=== PATIENT | male | born 1955 | race Hispanic/Latino ===

== ENCOUNTER 2019-01-24 20:09 | Inpatient (IN) | payer MEDICARE, MEDICAID ==
[2019-01-24 20:10] VITALS: BMI 32.0
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
[2019-01-24 21:11] LABS: BASO % 0.4 % (0.0-2.0); EOS # 0.1 K/uL (0.0-0.7); EOS % 1.7 % (0.0-4.0); HEMOGLOBIN 12.7 g/dL (12.0-18.0); LYMPH % 31.3 % (20.0-40.0); MEAN CELL VOLUME 95.1 fl (80.0-94.0); MEAN CORPUSCULAR HEMOGLOBIN 32.2 pg (27.0-31.0); MEAN CORPUSCULAR HGB CONC 33.9 g/dL (33.0-37.0); MEAN PLATELET VOLUME 8.8 fl (7.2-11.7); MONO # 0.9 K/uL (0.0-0.8); MONO % 14.1 % (0.0-10.0); NEUT # 3.4 K/uL (1.8-7.0); NEUT % 52.5 % (50.0-75.0); NRBC % 0.1 % (0.0-0.0); RBC 3.95 Mil/uL (4.40-5.90); RED CELL DISTRIBUTION WIDTH 13.7 % (11.5-14.5); WHITE BLOOD COUNT 6.4 K/uL (4.8-10.8)
[2019-01-24 21:16] LABS: URINE BACTERIA RARE (<OCC); URINE BILIRUBIN NEGATIVE (NEGATIVE); URINE BLOOD NEGATIVE (NEGATIVE); URINE CLARITY SLIGHTY-CLOUDY (Clear); URINE COLOR AMBER (YELLOW); URINE GLUCOSE (UA) NEG (NEGATIVE); URINE LEUKOCYTE ESTERASE NEG Leu/uL (Negative); URINE PROTEIN 30 mg/dL (NEGATIVE)
[2019-01-24 21:24] LABS: ALB/GLOB RATIO 1.3 (1.0-2.1); ALBUMIN 3.8 g/dL (3.5-5.0)
[2019-01-24 21:25] LABS: GFR NON-AFRICAN AMERICAN > 60
[2019-01-24 21:38] LABS: ALT/SGPT 18 U/L (21-72); AST/SGOT 33 U/L (17-59); BLOOD UREA NITROGEN 16 mg/dl (9-20); CALCIUM 9.4 mg/dL (8.4-10.2)
[2019-01-24 21:57] LABS: BENZODIAZEPINES, UR NEGATIVE (NEGATIVE)
[2019-01-24 21:58] LABS: BARBITURATES, UR NEGATIVE (NEGATIVE); OPIATES, UR NEGATIVE (NEGATIVE); PHENCYCLIDINE, UR NEGATIVE (NEGATIVE)
[2019-01-25 00:12] VITALS: O2SAT 98
[2019-01-25] MEDS ORDERED: Alum-Mag Hydrox-Simethicone Susp (30 mL) PO PRN (00:21)
[2019-01-25] MEDS ORDERED: Magnesium Hydroxide Susp 30 ml UD PO PRN (00:21)
[2019-01-25] MEDS ORDERED: Bismuth Subsalicylate 262 mg/15 ml Sus (240 ml) PO PRN (00:21)
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
[2019-01-25 06:14] VITALS: RESP 18
[2019-01-25 07:06] LABS: HDL CHOLESTEROL 39 MG/DL (30-70)
[2019-01-25 07:13] LABS: IRON 32 ug/dL (49-181)
[2019-01-25 07:19] LABS: LDL CHOLESTEROL 55 mg/dL (0-129)
[2019-01-25 07:22] LABS: % IRON SATURATION 13 % (20-55); TOTAL IRON BINDING CAPACITY 239 ug/dL (250-450)
[2019-01-25 07:43] LABS: FERRITIN 69.2 ng/Ml (17.9-464)
--- NOTE | 2019-01-25 08:42 | RAD ---
Date of service: 01/24/2019 HISTORY: crisis COMPARISON: No prior. TECHNIQUE: Chest PA and lateral views FINDINGS: LUNGS: Mild hazy density is seen at the right lung base probably representing combination of right hemidiaphragm, mild atelectasis and possible small right pleural effusion. A portion of this may be related to some chronic pleural parenchymal thickening. Left lung is clear. No hilar enlargement is seen. PLEURA: Mild blunting of the right costophrenic angle region which may suggest small amount of right pleural fluid and/or chronic pleural parenchymal change. CARDIOVASCULAR: No aortic atherosclerotic calcification present. Normal cardiac size. No pulmonary vascular congestion. OSSEOUS STRUCTURES: Mild degenerative changes are seen in the spine. VISUALIZED UPPER ABDOMEN: Normal. OTHER FINDINGS: None. IMPRESSION: Mild haziness at the right lung base and some blunting of the right costophrenic angle. Finding may reflect chronic right pleural parenchymal thickening and/or small right pleural effusion. Correlation with prior study is suggested.
--- NOTE | 2019-01-25 09:00 | CARD ---
APPROVED REPORT Date of service: 01/24/2019 EKG Measurement Heart [id number] <Conclusion> Normal sinus rhythm Minimal voltage criteria for LVH, may be normal variant Borderline ECG
[2019-01-25] MEDS ORDERED: Divalproex 500 mg DR(BID formulation) PO SCH ×2 (11:00→22:00)
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
[2019-01-25 12:08] LABS: FOLATE 7.1 ng/mL
[2019-01-26 06:02] VITALS: BP 145/91; PULSE 71; TEMP 97.6
[2019-01-26] MEDS ORDERED: Levothyroxine 125 MCG TAB PO SCH (09:00)
--- NOTE | 2019-01-26 09:36 | PCM.PYCHDC ---
Mental Status Examination - Mental Status Examination Orientation: Person, Place, Situation, Time Memory: Intact Mood: Neutral Affect: Broad Speech: Appropriate Attention: WNL Concentration: WNL Association: WNL Fund of Knowledge: WNL Formal Thought Process: No Impairment Description of patient's judgement and insight: Improved I/J Psychotic Thoughts and Behaviors: Denies AH/VH/paranoia Suicidal Ideation: No Current Homicidal Ideation?: No Discharge Summary - Discharge Note Reason for Hospitalization: 63 yo male w/ h/o schizoaffective disorder admitted w/ verbal aggression towards others and paranoia. Laboratory Data: Abnormal Lab Results 01/25/19 01/25/19 01/25/19 06:30 06:30 06:30 Hemoglobin A1c 5.3 Folate 7.1 RPR Nonreactive Consultations:: List each consultation separately and include: 1. Reason for request. 2. Findings. 3. Follow-up Consultations: Medicine consult ordered Summary of Hospital Course include:: 1. Description of specific treatment plan utilized for patients during their course of treatmen. 2. Summarize the time- course for resolution of acute symptoms and/or regressed behaviors. 3. Describe issues identified and worked on during hospitalization. 4. Describe medication utilized. 5. Describe medical problems identified and treated. 6. Reassessment of suicide risk Summary of Hospital Course: Patient was admitted to the psychiatry unit, restarted on his home medications and monitored for clinical safety. He submitted a 48 hr letter, was screened by [facility] and found to not meet criteria for involuntary psychiatric commitment at this time. Patient will be [facility] to the [facility] on his home medications. Risks/benefits of AMA explained to the patient. Patient is not currently agitated or aggressive. He denies acute depression/anxiety/AH/VH/paranoia/delusions/SI/HI. - Final Diagnosis (DSM 5) Condition upon Discharge: STABLE DSM 5: Schizoaffective Disorder Disposition: AGAINST MEDICAL ADVICE Follow-up Treatment Plan: Discharge AMA - Smoking Cessation Smoking Cessation Medication prescribed: No Reason for not providing: Not indicated - Antipsychotic Medications Pt discharged on 2 or more routine antipsychotic medications: Yes - Justification for 2 or more meds Failed 3 or more trials of Monotherapy: List medications: Patient was admitted on 3 antipsychotics. He was taking Haldol (which was being titrated) and Seroquel (which is being tapered down with the plan to stop it). He is also on a long acting injectatable- Invega Sustenna. Patient will be discharged AMA before medications can be further modified.
[2019-01-26] MEDS ORDERED: Pravastatin Sodium 20 MG TAB PO SCH (18:00)
[2019-01-26] MEDS ORDERED: Divalproex 500 mg ER (ONCE DAILY formulation) PO SCH (22:00)
[2019-01-27] MEDS ORDERED: Levothyroxine 100 MCG TAB PO SCH (09:00)
[2019-01-27] MEDS ORDERED: Pantoprazole 40 mg EC Tab PO SCH (09:00)
[2019-02-10] MEDS ORDERED: Paliperidone Palmitate 234 MG/1.5 ML SYR IM SCH (09:30)
== END 2019-01-26 13:40 | disposition left against medical advice (07) | DRG 885 ==
LOC: H.ER 20:09 → H.ERHOLD 23:26 → H.STEP 01-25 00:18
PROVIDERS: ADMIT Psychiatry & Neurology Psychiatry; ATTEND Psychiatry & Neurology Psychiatry
PROC: GZ51ZZZ Individual Psychotherapy, Behavioral (ICD-10-PCS; 2019-01-24)
PROC: GZ56ZZZ Individual Psychotherapy, Supportive (ICD-10-PCS; 2019-01-24)
PROC: GZHZZZZ Group Psychotherapy (ICD-10-PCS; principal; 2019-01-26)
DX: F25.0 Schizoaffective disorder, bipolar type (principal); E03.9 Hypothyroidism, unspecified; E78.5 Hyperlipidemia, unspecified; I10 Essential (primary) hypertension; K21.9 Gastro-esophageal reflux disease without esophagitis; M17.0 Bilateral primary osteoarthritis of knee; N40.0 Benign prostatic hyperplasia without lower urinary tract symptoms; Z79.890 Hormone replacement therapy; Z79.899 Other long term (current) drug therapy